=== PATIENT | female | born 1955 | race Caucasian/White ===

== ENCOUNTER 2017-05-05 08:56 | Day surgery (SDC) | payer OTHER ==
[~2017-05-05] VITALS: Ht 167.6 cm; Wt 128.1 kg
[~2017-05-05 08:56] MED LIST: CELEXA; LASIX40 MG PO; LOVASTATIN40 MG PO; WELLBUTRIN
[2017-05-05 09:40] LABS: HEMATOCRIT 40.5 % (36.0-46.0); MCH 32.2 PG (29.0-34.0); MCHC 32.1 G/DL (30.0-36.0); MCV 100.2 FL (83-99); MEAN PLAT.VOLUME 11.7 uM^3 (9.5-12.4); NRBC (%) 0.3 /100 WBC (0-0); PLATELET COUNT 120 K/uL (156-360); RBC DIS.WIDTH-CV 13.2 % (11.8-14.6); RBC DIS.WIDTH-SD 49.4 % (39-53); RED BLOOD COUNT 4.04 M/uL (3.80-5.20); WHITE BLOOD COUNT 6.6 K/uL (4.1-10.2)
[2017-05-05 10:01] LABS: CHLORIDE 111 mEq/L (99-109); POTASSIUM 3.7 mEq/L (3.7-5.4); SODIUM 144 mEq/L (136-147)
[2017-05-05 10:03] LABS: GLUCOSE 109 mg/dL (70-99)
[2017-05-05 10:05] LABS: ANION GAP 14 MEQ/L (2-14)
[2017-05-05 10:07] LABS: GFR ESTIMATE (CALCULATED) > 59 mL/min/
[2017-05-05 10:08] LABS: UREA NITROGEN (BUN) 29 mg/dL (9-23)
[2017-05-05 11:06] LABS: TROP-I INTERPRETATION NEGATIVE; TROPONIN-I 0.24 ng/mL (0.0-0.30)
[2017-05-05 11:36] LABS: ADD MIUA? YES; BILIRUBIN NEGATIVE; BLOOD MODERATE; COLOR YELLOW ((YELLOW)); GLUCOSE (STRIP) NEGATIVE; KETONES NEGATIVE; LEUKOCYTES LARGE; NITRITE POSITIVE; PROTEIN (STRIP) 100; SPECIFIC GRAVITY 1.017 (1.000-1.030); UROBILINOGEN 0.2 MG/DL (0.2-1.0)
[2017-05-05 11:56] LABS: BACTERIA 2+ /HPF; CASTS PRESENT /LPF; EPITHELIAL CELLS 1+ /HPF; MUCUS 2+ /LPF; RED BLOOD CELLS 15-20 /HPF (0-5); UCUL ADDED? YES; WHITE BLOOD CELLS TNTC /HPF (0-5)
[2017-05-05 11:57] LABS: HYALINE CASTS 0-5 /LPF
[2017-05-05 12:58] LABS: TROP-I INTERPRETATION POSITIVE
[2017-05-05 12:59] LABS: TROPONIN-I 1.12 ng/mL (0.0-0.30)
[2017-05-05 13:58] LABS: PROTHROMBIN TIME 11.8 SEC (10.2-12.9)
[2017-05-05 14:08] LABS: PTT 24.2 SEC (25-37)
[2017-05-05 20:26] VITALS: BP 117/56
[2017-05-05] MEDS ORDERED: ICY HOT 4%-1%76.5 GM TP (21:54)
[2017-05-05] MEDS ORDERED: [UNRECOGNIZED DRUG - OTHER] PO (22:03)
[2017-05-05] MEDS ORDERED: BUPROPION XL300 MG PO (22:04)
[2017-05-05] MEDS ORDERED: FUROSEMIDE40 MG PO (22:06)
[2017-05-05] MEDS ORDERED: LOVASTATIN40 MG PO (22:07)
[2017-05-05] MEDS ORDERED: VENLAFAXINE HCL75 MG PO (22:08)
[2017-05-05] MEDS ORDERED: TRAMADOL HCL50 MG PO (22:10)
[2017-05-05] MEDS ORDERED: DICLOFENAC SOD100 MG PO (22:12)
[2017-05-05] MEDS ORDERED: LISINOPRIL10 MG PO (22:13)
[2017-05-06 00:25] VITALS: BP 107/54
[2017-05-06] MEDS ORDERED: MEDROL DOSEPAK4 MG PO (02:37)
[2017-05-06 02:55] LABS: TROP-I INTERPRETATION POSITIVE
[2017-05-06 03:06] LABS: TROPONIN-I 0.86 ng/mL (0.0-0.30)
[2017-05-06 03:42] VITALS: BP 111/58
[2017-05-06 05:31] LABS: BASOPHIL COUNT 0.1 K/uL (0-0.1); EOSINOPHIL (%) 1.3 % (0-5); EOSINOPHIL COUNT 0.1 K/uL (0-0.3); HEMATOCRIT 33.5 % (36.0-46.0); IMMATURE GRANULOCYTE (%) 0.7 % (0.0-0.7); IMMATURE GRANULOCYTE COUNT 0.1 K/uL; INSTRUMENT ABS NEUTROPHIL CT 7.3 K/uL; LYMPHOCYTE COUNT 1.4 K/uL (1.0-2.8); MCH 31.9 PG (29.0-34.0); MCHC 31.3 G/DL (30.0-36.0); MCV 101.8 FL (83-99); MEAN PLAT.VOLUME 12.2 uM^3 (9.5-12.4); MONOCYTE (%) 13.7 % (3-12); MONOCYTE COUNT 1.4 K/uL (0-0.8); NEUTROPHIL (%) 70.6 % (45-76); NEUTROPHIL COUNT 7.3 K/uL (1.8-6.4); PLATELET COUNT 108 K/uL (156-360); RBC DIS.WIDTH-CV 13.6 % (11.8-14.6); RBC DIS.WIDTH-SD 51.1 % (39-53); RED BLOOD COUNT 3.29 M/uL (3.80-5.20); TROP-I INTERPRETATION POSITIVE; TROPONIN-I 1.18 ng/mL (0.0-0.30); WHITE BLOOD COUNT 10.4 K/uL (4.1-10.2)
[2017-05-06 05:46] LABS: ANION GAP 5 MEQ/L (2-14); CHLORIDE 110 MEQ/L (99-109); GFR ESTIMATE (CALCULATED) > 59 mL/min/; GLUCOSE 119 mg/dL (70-99); POTASSIUM 4.4 MEQ/L (3.7-5.4); SAMPLE HEMOLYSIS CHECK 0; SAMPLE ICTERIC CHECK 0; SAMPLE LIPEMIA CHECK 0; SODIUM 140 MEQ/L (136-147); UREA NITROGEN (BUN) 24 mg/dL (9-23)
[2017-05-06 07:27] VITALS: BP 131/63
[2017-05-06 11:45] VITALS: BP 138/66
[2017-05-06 13:43] LABS: TROP-I INTERPRETATION POSITIVE; TROPONIN-I 3.03 ng/mL (0.0-0.30)
[2017-05-06] MEDS ORDERED: ASPIR-LOW81 MG PO (15:06)
[2017-05-06] MEDS ORDERED: CLOPIDOGREL75 MG PO (15:06)
[2017-05-06] MEDS ORDERED: CIPROFLOXACIN250 MG PO (15:06)
[2017-05-06] MEDS ORDERED: LOPRESSOR25 MG PO (15:06)
[2017-05-06 15:14] VITALS: BP 122/70
[2017-05-06 15:36] VITALS: BP 120/70
== END 2017-05-06 17:13 | disposition home or self-care (01) ==
LOC: EME 08:56 → CATH 15:48 → 2SOUTH 16:30 → ENRESERV 17:10 → 4EAST 20:36
PROVIDERS: Emergency Medicine; Internal Medicine Cardiovascular Disease
DX: I24.9 Acute ischemic heart disease, unspecified (principal); I25.10 Atherosclerotic heart disease of native coronary artery without angina pectoris; I10 Essential (primary) hypertension; N39.0 Urinary tract infection, site not specified; R06.00 Dyspnea, unspecified; R42 Dizziness and giddiness; M54.40 Lumbago with sciatica, unspecified side; R47.81 Slurred speech; R11.2 Nausea with vomiting, unspecified; E78.5 Hyperlipidemia, unspecified; E66.01 Morbid (severe) obesity due to excess calories; Z87.891 Personal history of nicotine dependence
CPT/HCPCS: 70450; 71020; 80048; 81003; 84484; 85025; 85027; 85347; 85610; 85730; 87077; 87086; 87186; 93005; C1769; C1887; G0378; J0153; J0696; J1644; J2250; J2270; J2405; J3010; J3246; J7030